=== PATIENT | male | born 1960 | race Caucasian/White ===

== ENCOUNTER 2024-03-05 07:56 | Outpatient (CLI) | payer MEDICARE, SELFPAY ==
--- NOTE | ~2024-03-05 | CT_ITS ---
EXAMINATION: CT lumbar spine wo con DATE: 03/05/2024 08:21 INDICATION: Lumbar radiculopathy. TECHNIQUE: Computed tomography (CT) of the lumbar spine was performed without intravenous contrast. A utomated exposure control and iterative reconstruction technique were employed. The dose-length produ ct was 853.75 mGy-cm. COMPARISON: None FINDINGS: There is 5 degrees levocurvature of lumbar spine. There are changes of anterior and posteri or fusion procedures at L5-S1 with interbody device and pedicle screws. There is mild chronic anterio r wedging of L1 vertebral body. There is moderately decreased disc height at L2-L3, mildly decreased disc height at L3-L4, and moderately decreased disc height at L4-L5. The following disc levels are sp ecifically discussed: L1-L2: The disc does not extend beyond the endplate margin. There is severe right and moderate left f acet joint osteoarthritis. There is no neural foraminal stenosis. There is no central canal stenosis. L2-L3: The disc is bulging. There is moderate right and severe left facet joint osteoarthritis. There is mild bilateral neural foraminal stenosis. There is mild central canal stenosis. L3-L4: The disc is bulging. There is severe right and moderate left facet joint osteoarthritis. There is moderate bilateral neural foraminal stenosis. There is mild central canal stenosis. L4-L5: The disc is bulging. There is severe bilateral facet joint osteoarthritis. There is mild right and moderate left neural foraminal stenosis. There is mild central canal stenosis. L5-S1: There is mild bilateral facet joint hypertrophy. There is mild bilateral neural foraminal sten osis. There is no central canal stenosis. There is posterior decompression. IMPRESSION: 1. Moderate lumbar spondylosis. 2. Anterior and posterior fusion procedures at L5-S1. Reviewed, dictated and finalized at location A.
== END 2024-03-05 07:57 | disposition home or self-care (01) ==
LOC: MICIMG 07:58
PROVIDERS: PCP Nurse Practitioner Family
DX: M47.816 Spondylosis without myelopathy or radiculopathy, lumbar region (principal); M43.27 Fusion of spine, lumbosacral region; M54.16 Radiculopathy, lumbar region
CPT/HCPCS: 72131

== ENCOUNTER 2024-12-12 14:28 | Outpatient (CLI) | payer MEDICARE, SELFPAY ==
--- NOTE | ~2024-12-12 | MR_ITS ---
MRI of the brain Clinical History: Hallucinations Technique: Axial and sagittal T1-weighted images were acquired. These were followed by axial T2-weigh joseph, diffusion weighted, gradient, and FLAIR images. Following intravenous administration of 20 cc Mu ltiHance gadolinium, T1-weighted fat-sat imaging was performed in the axial and coronal planes. Findings: There is no acute infarct, intracranial hemorrhage or mass lesion. There are minimal chroni c microvascular ischemic changes in the periventricular white matter. Ventricles and subarachnoid spaces are unremarkable. Orbits are unremarkable. Paranasal sinuses and l eft mastoid areas are clear. There is right mastoid effusion. Major intracranial flow voids appear in tact. Sagittal midline structures are intact. No abnormal postcontrast enhancement identified. IMPRESSION: Minimal chronic microvascular ischemic change, otherwise unremarkable exam. Reviewed, dictated and finalized at location M.
== END 2024-12-12 14:29 | disposition home or self-care (01) ==
LOC: MICIMG 14:28
PROVIDERS: PCP Nurse Practitioner; Visit Provider Nurse Practitioner
DX: R44.3 Hallucinations, unspecified (principal)
CPT/HCPCS: 70553; A9577